=== PATIENT | male | born 1960 | race Caucasian/White ===

== ENCOUNTER → 2018-12-30 08:05 | Outpatient (CLI) | payer MEDICARE, BC ==
[2014-02-17 07:48] VITALS: BMI 30.5
[~2018-12-30 08:05] MED LIST: BAYER CHEWABLE81 MG PO; COUMADIN10 MG PO; PLAVIX75 MG PO; TOPROL XL25 MG PO
--- NOTE | 2019-01-06 09:52 | EC ---
PATIENT:TORSTEN CIFUENTES DATE OF SERVICE: 12/30/18 SEX: M MEDICAL RECORD: [id number] DATE OF : 56 LOCATION:[facility] AGE OF PATIENT: 58 ADMISSION DATE: 12/30/18 REFERRING PHYSICIAN: INTERPRETING PHYSICIAN: TORSTEN ROSENBERG MD ECHOCARDIOGRAM REPORT ECHO CHARGES 4 ECHO COMPLETE Date: 12/30/18 CLINICAL DIAGNOSIS: DYSPNEA ECHOCARDIOGRAPHIC MEASUREMENTS (adult normal given) AC root (d.<3.7cm) 3.4 cm LV Septum d (<1.2 cm> 1.4 cm Valve Excursion 2.1 cm LV Septum (systole) 1.5 cm Left Atria (s.<4.0cm> 3.7 cm LVPW d(<1.2cm) 0.9 cm RV (d.<2.3cm) 3.7 cm LVPW (sytole) 1.7 cm LV diastole(<5.6CM) 4.3 cm MV E-F(>70mm/sec) cm LV systole 3.4 cm LVOT Diameter 2.1 cm MV exc.(>10mm) cm Est.ejection fraction (50-75%) % DOPPLER: LVIT cm/sec A 77 cm/sec E 70 cm/sec LA cm/sec RVSP 21.1 mmHg LVOT cm/sec AOP1/2T m/s Asc. Ao cm/sec RVOT 50 cm/sec RA cm/sec PA 65 cm/sec AV Gradient Peak mmHg AV Mean mmHg AV Area cm MV Gradient Peak 3.7 mmHg MV Mean 2.0 mmHg MV Area cm COMMENTS: Windows Laptop Technician: Marla BLEVINS Office Administration Instructor: Roderick Rosenberg TAPE# PACS Pericardial Effusion N DATE OF SERVICE: 12/30/2018 FINDINGS: 1. Left ventricular chamber size is within normal limits. Left ventricular systolic function is normal. Overall ejection fraction is estimated at 55%. 2. Left atrium is within normal limits. Right atrium and right ventricular chamber sizes are mildly dilated. 3. Valvular structures have normal structure and motion. 4. Doppler interrogation reveals mild tricuspid regurgitation. No other valvular insufficiency or stenosis. Pulmonary systolic pressure is estimated at ECHOCARDIOGRAM REPORT [id number] TORSTEN CIFUENTES 21 mmHg. 5. No evidence of pericardial effusion or left ventricular thrombus. TRANSINT:[id number] Voice Confirmation ID: [id number] DOCUMENT ID: [id number] TORSTEN ROSENBERG MD at 0952 CC: [id number] DICTATION DATE: 12/30/181933 [employer] EXCHANGE ADMINISTRATOR: 12/30/182020 DEP CLI 12/30/18 [place] [id number] [place] [id number]
== END | disposition home or self-care (01) ==
LOC: D.RT 08:00
PROVIDERS: ATTEND Internal Medicine Pulmonary Disease
DX: R06.00 Dyspnea, unspecified (principal)